=== PATIENT | female | born 1940 | race Caucasian/White ===

== ENCOUNTER 2025-02-15 08:59 | Inpatient (IN) | payer MEDICARE, OTHER ==
[~2025-02-15] VITALS: Ht 157.5 cm; Wt 56.6 kg
--- NOTE | 2025-02-15 09:26 | Physician Documentation ---
History of Present Illness Chief Complaint: Abdominal Pain Stated Complaint: ABD PAIN Time Seen by MD: 09:16 HPI 5-year-old female presents to the ED with a complaint of right lower quadrant abdominal pain that goes to her right flank. Denies any history of kidney stones but reports that she has had diarrhea for approximately a month and over the last day she has had increased pain in nausea. Denies any fevers and reports being generally healthy Day of Onset: Feb 15, 2025 Medication Reconciliation Allergies: Coded Allergies: No Known Allergies (Unverified , 02/15/25) Physical Exam Vital Signs: Temperature: 97.0, Source: Temporal, Heart Rate: 83, Respiratory Rate: 18, BP: 191/87, Pulse Oximetry: 97, Weight: 50.910 Physical Exam General: Alert, no apparent distress. Respiratory: Lungs clear, no respiratory distress. Cardiovascular: Regular rate and rhythm, no murmurs. Gastrointestinal: Soft, tender LLQ Extremities: Normal range of motion, no deformity. Neurologic: Oriented x4. Psychiatric: Normal mood and affect. Skin: Normal color, warm and dry. No edema, no ecchymosis. Progress Results/Orders Results/Orders Orders - GOPAL PACKER OBSTETRICS SPECIALIST Pantoprazole 40mg Iv (Protonix 40mg Iv) (02/15/25 09:20) Ct Abdomen Pelvis (02/15/25 09:20) Completed Orders - GOPAL PAKCER OBSTETRICS SPECIALIST Normal Saline 1000ml (0.9% Sodium Chlori (02/15/25 09:20) Ondansetron Inj. (Zofran 4mg/2ml Vial) (02/15/25 09:20) Vital Signs 02/15/25 09:04 Temp 97.0 Pulse 83 Resp 18 B/P (MAP) 191/87 Pulse Ox 97 Laboratory Tests Test 02/15/25 09:19 Medical Decision Making Additional info obtained from: other Findings Spoke to Dr. Munoz regarding this patient. Has him of evidence of a small- bowel obstruction and trace free fluid. She is currently hemodynamically stable we and has a white count of 12.9. I am awaiting lactic. We will maintain her comfort and admitted to the hospital Differential Dx:Considerations: Include: AAA, -Complete, - Incomplete, -Inevitable, -Missed, -Threatened, Abruptio placentae, Angina/DC, Aortic dissection, Appendicitis, Bowel obstruction, Cholangitis, Cholelithasis, Constipation, Diverticular disease, Esophageal rupture, Esophagitis, Gastritis/PUD, Gastroenteritis, GI hemorrhage, Hernia, Hepatitis, Inflammatory BD, Ischemic bowel, Ovarian cyst/torsion, Pancreatitis, PID, Porphyria, Trauma, intraabdominal, Urinary obstruction, Urinary tract infection, Urolithiasis, Other Departure Disposition: 09 ADMITTED INPATIENT Impression: Primary Impression: Abdominal pain Condition: Stable Referrals: NO PRIMARY CARE PROVIDER (PCP) Signature Scribe Signature: c Attestation: Scribed for Gopal Packer Np by Gopal Rivas NP . 02/15/25 16:06 GOPAL PACKER NP Feb 15, 2025 09:26
[2025-02-15 09:38] LABS: MEAN PLATELET VOLUME 9.8 FL (7.4-10.4); RED CELL DISTRIBUTION WIDTH 13.3 % (11.5-14.5)
[2025-02-15] MEDS: ondansetron/PF 4mg/2ml inj IV ONE (09:40)
[2025-02-15] MEDS: normal saline 1000ML IV soln IVB ONE (09:49)
[2025-02-15 09:58] LABS: CREATININE 0.82 MG/DL (0.40-0.90); TOTAL CARBON DIOXIDE 29.3 MMOL/L (24-32); eCRCL 41 ML/MIN; eGFR 67 ML/MIN
--- NOTE | 2025-02-15 10:57 | RADIOLOGY REPORT ---
CLINICAL HISTORY: RLQ abd pain TECHNIQUE: CT of the abdomen and pelvis was performed without IV contrast. This exam was performed according to our departmental dose optimization program. Up-to-date CT equipment and radiation dose reduction techniques are utilized as appropriate. CTDI 8.9 DLP 398 COMPARISON: None FINDINGS: Abdomen/Pelvis: The spleen, pancreas, adrenal glands, kidneys, gallbladder, and bladder are grossly unremarkable. The uterus is absent. A hypodense lesion within the liver is incompletely characterized due to small size and lack of IV contrast. The abdominal aorta is normal in course and caliber. There are moderate atherosclerotic changes. There is no free intraperitoneal air. There is no enlarged abdominal pelvic lymph node. There is diffuse proximal primarily fluid-filled small-bowel dilatation with luminal caliber approaching 3.2 cm. There is a transition point at the right lower quadrant, best seen on images 79 through 62 series 2 and images 23 through 35 series 601. Is a small amount of free fluid. Other: The imaged lower thorax is unremarkable. No acute osseous abnormality is evident. There is grade 1 L4-L5 and L5-S1 anterolisthesis. Impression: Small-bowel obstruction as above. Small amount of free fluid. Hysterectomy.
[2025-02-15 11:28] LABS: LEUKOCYTE ESTERASE ,URINE NEGATIVE (Neg); NITRITES, URINE NEGATIVE (Neg); OCCULT BLOOD,URINE TRACE-INTACT (Neg)
[2025-02-15 11:30] LABS: UA COLLECTION TYPE CLN CATCH MIDSTREAM
[2025-02-15 11:38] LABS: AMORPHOUS PHOSPHATES 3+; SQUAMOUS EPITHELIAL CELL,UR FEW /LPF (FEW)
[2025-02-15 11:39] LABS: COARSE GRANULAR CAST 0-3 /LPF (NEGATIVE)
[2025-02-15] MEDS: morphine 4 MG/ML inj SYRINge IV ONE (11:47)
[2025-02-15] MEDS: normal saline 1000ml 1,000 ML IV SCH (12:05)
[2025-02-15] MEDS ORDERED: magnesium sulf-water 4G/100mL 100 ML IV PRN (12:05)
[2025-02-15] MEDS ORDERED: magnesium sulf-water 2g/50mL 50 ML IV PRN (12:05)
[2025-02-15] MEDS ORDERED: potassium Cl 20 mEq SR tablet PO PRN ×2 (12:05)
[2025-02-15] MEDS ORDERED: magnesium Cl slow-release 64mg tablet PO PRN (12:05)
[2025-02-15] MEDS ORDERED: HYDROcodone/acetaminophen 10/325mg tab PO PRN (12:05)
[2025-02-15] MEDS ORDERED: HYDROcodone/acetaminophen 5mg/325mg tablet PO PRN (12:05)
[2025-02-15] MEDS: normal saline 1000ml 1,000 ML IV ONE (12:08)
[2025-02-15] MEDS: fentaNYL/PF 50MCG/1 ML 2ML syringe IV ONE (12:15)
--- NOTE | 2025-02-15 13:19 | VASCULAR REPORT ---
[facility] Vascular Department [facility] [address] [place] [address] [email or web address] Name : GALA BRAR Date : 02/15/2025 [facility] Birthdate : 1940 Sex : F Astronomy Teacher : Lalo Foss RVT Age : [address]Y [address] : JADE Preliminary Report The above named patient was referred for a NON-INVASIVE MESENTERIC ARTERY EVALUATION. The evaluation includes grayscale imaging, color flow Doppler and spectral analysis of the mesenteric and other associated abdominal arteries. Patient ER InaRcations Abdominal pain/postprandial nausea Assessment Origin Proximal Mid Distal Superior Mesenteric A. PSV 234.0cm/s PSV 237.1cm/s PSV 129.7cm/s EDV 26.2cm/s EDV 43.0cm/s EDV 16.4cm/s High Resistance High Resistance High Resistance Celiac [place] PSV 223.8cm/s EDV 36.5cm/s Low Resistance Hepatic Artery PSV 108.6cm/s EDV 26.2cm/s Low Resistance Splenic Artery PSV 206.4cm/s EDV 28.6cm/s Low Resistance Aortic Doppler Velocity Waveform Proximal Aorta 119.9 cm/sec Multiphasic Impression: Technically difficult exam due to patient's heavy labored breathing as a result of patient's pain. Possible greater than 70% stenosis detected by image in the celiac axis. The splenic artery also displays elevated velocities with turbulence, indicating a possible stenosis. Less than 70% stenosis visualized in the superior mesenteric artery, unable to visualize the inferior mesenteric artery due to bowel gas.
--- NOTE | 2025-02-15 18:54 | PROGRESS NOTE ---
Progress Note ID Providers to CC ~ Progress Note Progress Note: pt seen and examined-needs ct with oral contrast LAINE VARGHESE MD Feb 15, 2025 18:54
--- NOTE | 2025-02-15 19:13 | CARDIOLOGY REPORT ---
APPROVED REPORT EXAM: Comprehensive 2D, Doppler, and color-flow Echocardiogram. Patient Location: 346 A Heart Rate: 60's bpm Rhythm: SINUS Indications PRE OP Escrow Clerk: NONE Previous echo: NONE 2D Dimensions RVDd 3.0 cm IVSd 0.8 (0.7-1.1cm) LVDd 4.0 cm PWd 0.8 (0.7-1.1cm) IVSs 1.0 (0.8-1.2cm) LVDs 2.6 (2.5-4.0cm) PWs 1.0 (0.8-1.2cm) LVOT Diameter 1.96 (1.8-2.4cm) LVEF(%) 64.6 (>50%) FS (%) 34.8 % SV 44.3 ml CO 2.7 L/min M-Mode Dimensions Left Atrium(MM) 3.36 (2.5-4.0cm) Aortic Root 2.89 (2.2-3.7cm) Aortic Cusp Exc 1.99 (1.5-2.0cm) Aortic Valve AoV Peak Javier. 128.8 cm/s AoV VTI 26.2 cm AO Peak GR. 6.6 mmHg AO Mean GR. 3 mmHg LVOT VTI 22.15 cm LVOT Peak Javier. 102.7 cm/s TRIPP(VTI)/BSA 2.56 cm2/m2 TRIPP (VTI) 2.56 cm2 AV DI 0.85 % Mitral Valve MV E Velocity 65.7 cm/s MV Peak Gr. 3 mmHg MV DECEL TIME 244 ms MV A Velocity 79.1 cm/s MV PHT 64 ms E/A Ratio 0.8 MVA (PHT) 3.44 cm2 MV VMax 93.0 cm/s Tricuspid Valve TR P. Velocity 197 cm/s RAP ESTIMATE 10 mmHg TR Peak Gr. 16 mmHg RVSP 26 mmHg LEFT VENTRICLE Normal LV size and wall thickness. Overall systolic function is normal. LVEF is 65-70%. RIGHT VENTRICLE RV is normal size and function. ATRIA The left atrium size is normal. AORTIC VALVE Trileaflet AV appears mildly sclerotic without stenosis. Mild insufficiency. MITRAL VALVE Mild MV annular calcification without stenosis. Trace regurgitation. TRICUSPID VALVE TV appears structurally normal with trace regurgitation. PULMONIC VALVE Normal PV without stenosis, physiologic insufficiency. GREAT VESSELS The aortic root is normal in size. PERICARDIUM Normal pericardium. No effusion. Other Information Study Quality: Adequate Conclusion Normal LV size and wall thickness. Overall systolic function is normal. LVEF is 65-70%. RV is normal size and function. The left atrium size is normal. Trileaflet AV appears mildly sclerotic without stenosis. Mild insufficiency. Mild MV annular calcification without stenosis. Trace regurgitation. TV appears structurally normal with trace regurgitation. Normal pericardium. No effusion.
[2025-02-15] MEDS: K and/or MAG REPLACEMENT MC SCH (20:00)
--- NOTE | 2025-02-15 20:11 | HISTORY AND PHYSICAL ---
History & Physical Providers to ~ History of Present Illness Reason for Admit\Complaint: Abdominal pain which started last night History of Present Illness Patient is 85-year-old female with history of hypothyroidism does not take any other medication besides levothyroxine and vitamin-C. She came to ER with her concern regarding abdominal pain mainly lower abdominal pain which she noticed last night . as per it started around 11:00 a.m. and got more worse around 1-2 p.m.. Patient mentioned that it feels like that somebody pinched or twisted her intestines it woke her from her sleep. she [place] as if gas is building up in her stomach so she forced herself to threw up . Patient also mentioned that she is having watery diarrhea since last one month in last bowel movement was this a.m. today was also watery. She denied any blood in her stools , denied any fever . As per patient pain is started suddenly and it was not there since last month with diarrhea. She had colonoscopy done around 77 years of age which was unremarkable. She never had similar symptoms in past and this is the 1st episode of severe abdominal pain for her. Patient does not smoke drink or use any recreational drugs. 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 The splenic artery also displays elevated velocities with turbulence, indicating a possible stenosis. Less than 70% stenosis visualized in the superior mesenteric artery, unable to visualize the inferior mesenteric artery due to bowel gas. CT ABDOMEN PELVISSmall-bowel obstruction as above.Small amount of free fluid. s/p Hysterectomy. Allergies: Coded Allergies: No Known Allergies (Unverified , 02/15/25) Past Medical History Past Medical History Hypothyroidism Past Surgical History Surgical History Comment s/p Hysterectomy. Past Social History Social History Comment Patient lives with her , denies any use of any tobacco alcohol or any recreational drugs. Able to ambulate well ROS ROS Review of system as mentioned above in HPI rest of the review of system unremarkable Exam Vitals: Vital Signs Date Time Temp Pulse Resp B/P (MAP) Pulse Ox O2 Delivery O2 Flow Rate FiO2 02/15/25 14:52 98.3 69 16 132/60 (84) 95 0 General: General-patient not in any acute distress, alert awake oriented, age- appropriate, HEENT-atraumatic normocephalic, neck supple without elevated JVD, no thyromegaly or carotid bruit. No lymphadenopathy bilaterally. Eyes-no icterus or pallor seen in eyes Chest-clear to auscultation bilaterally, breathing nonlabored no tachypnea, no wheezing, no crepitation, no crackles. Heart-S1-S2 normal, regular heart rate no murmur Abdomen bowel sounds positive on auscultation, soft nondistended , no signs of tenderness when I evaluated her, no guarding, no rigidity. No abdominal bruit Skin no active skin rash Neurology-grossly intact, nonfocal alert awake oriented Extremity- no pedal edema able to move all 4 extremities Psychiatry - patient is not confused or agitated cooperated during physical examination Diagnostic Data Last Recorded Lab Results: 02/15/2591802/15/25918 Additional Plan Patient is 85-year-old female with history of hypothyroidism does not take any other medication besides levothyroxine and vitamin-C. She came to ER with her concern regarding abdominal pain mainly lower abdominal pain which she noticed last night . Hospitalist services contacted for admission for small-bowel obstruction. # small-bowel obstruction. ER provider spoke with Dr. Antoine who is willing to evaluate the case. Ordered CT with oral contrast today. Patient is started on IV fluids IV antibiotics and pain medication for pain control. 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 The splenic artery also displays elevated velocities with turbulence, indicating a possible stenosis. Less than 70% stenosis visualized in the superior mesenteric artery, unable to visualize the inferior mesenteric artery due to bowel gas. CT ABDOMEN PELVISSmall-bowel obstruction as above.Small amount of free fluid. s/p Hysterectomy. # hypothyroidism we will restart levothyroxine in a.m. We will continue to monitor patient's labs and vitals closely . Code status discussed with the patient patient wishes full code Time spent in discussing code status 16 minutes. We will do home medication reconciliation once updated in electronic by nursing staff or pharmacist. Further management depending on response to treatment and as per recommendation by Dr Munoz . I will continue to follow patient in a.m. Date of Service: Feb 15, 2025 Billing Provider: LINNEA CASILLAS MD Common Visit Codes: [id number] INP/OBS CARE (HIGH) Secondary Visit Codes: 37218-[id number] CARE PLAN 30 MINUTES LINNEA CASILLAS MD Feb 15, 2025 20:11
[2025-02-15] MEDS: diatr meglu/diatrizoate 30ml oral sol.-(3 dose) bottle PO SCH (21:10)
[2025-02-15] MEDS: heparin, porcine 5000 units/ml vial SQ SCH (21:11)
[2025-02-15 22:00] VITALS: BP 154/55; PULSE 61; RESP 16; TEMP 98; O2SAT 96
[2025-02-15] MEDS: CefTRIAXone 2gm/D5W 50ml BAG 50 ML IV SCH (22:11)
[2025-02-15] MEDS: ondansetron/PF 4mg/2ml inj IV PRN (22:18)
[2025-02-15] MEDS ORDERED: morphine 4 MG/ML inj SYRINge IV PRN (22:40)
[2025-02-15] MEDS ORDERED: LEVO75TA7 PO (22:55)
[2025-02-15] MEDS: morphine 4 MG/ML inj SYRINge IV PRN (23:17)
[2025-02-16] VITALS (30 sets, daily range): BP systolic 111–215; BP diastolic 47–99; PULSE 61–85; RESP 10–28; TEMP 97.5–98.3; O2SAT 93–100
[2025-02-16 04:43] LABS: MEAN PLATELET VOLUME 9.4 FL (7.4-10.4); RED CELL DISTRIBUTION WIDTH 13.7 % (11.5-14.5)
[2025-02-16 04:59] LABS: CREATININE 0.76 MG/DL (0.40-0.90); TOTAL CARBON DIOXIDE 28.7 MMOL/L (24-32); eCRCL 44 ML/MIN; eGFR 73 ML/MIN
[2025-02-16] MEDS ORDERED: metoclopramide 5 mg/ml inj IV PRN (10:15)
--- NOTE | 2025-02-16 11:33 | CONSULTATION ---
DATE OF CONSULTATION: 02/15/2025 DICTATING PHYSICIAN: Rupert Munoz MD REASON FOR CONSULTATION: Abdominal pain. HISTORY OF PRESENT ILLNESS: The patient is an 85-year-old female without the past medical history who developed right-sided abdominal discomfort. The patient presented for evaluation. CAT scan revealed evidence of a small bowel obstruction. Surgical evaluation is now requested. On further questioning, the patient complains of right-sided abdominal discomfort. She has had some vomiting. She has had a change in bowel movements in the last month. Now she is having watery stool on a daily basis. No blood per rectum per her report. No history of inflammatory bowel disease. PAST MEDICAL HISTORY: Hypothyroidism. PAST SURGICAL HISTORY: Previous hysterectomy. HOME MEDICATIONS: See chart. ALLERGIES: None. SOCIAL HISTORY: Unremarkable. REVIEW OF SYSTEMS: Please see H and P. PHYSICAL EXAMINATION: GENERAL: Well-nourished, elderly female. VITAL SIGNS: Unremarkable. HEART: Regular rate and rhythm. LUNGS: Clear to auscultation. ABDOMEN: Abdomen is distended with some mild tenderness. No ana maria peritonitis. No masses appreciated. No hernias appreciated. EXTREMITIES: Unremarkable. NEUROLOGIC EXAM: Nonfocal. LABORATORY DATA: Labs include WBC of 12, hematocrit 48, platelet count 301. Chemistries include a bicarb of 29, BUN and creatinine of 3 and 0.8. LFTs are unremarkable. Lactic acid level was 1.5. IMAGING STUDIES: CT of the abdomen and pelvis reveals dilated loops of small bowel, decompressed loops distally. No obvious calcification in the mesenteric vessels. IMPRESSION: * Partial bowel obstruction, no signs of peritonitis. * History of hypothyroidism. PLAN: * Check Doppler. * Repeat CT with oral contrast. * Serial exam. Rupert Munoz MD TID: [id number] RECEIPT: [id number] KB/PRG cc: Rupert Munoz MD(User)
--- NOTE | 2025-02-16 13:15 | RADIOLOGY REPORT ---
Indication: pain Comparison: CT CT ABDOMEN PELVIS on DOS: 02/15/25 Technique: Helical axial scans were performed through the abdomen and pelvis without intravenous contrast. Oral contrast was administered. Subsequently, coronal and sagittal reformations were obtained. Dose lowering techniques have been used including automated exposure control and adjustment of mA and/or kv according to patient size. FINDINGS: Limited evaluation of the vasculature and solid organs due to lack of intravenous contrast. LUNGS BASES: Clear LIVER: Too small to characterize hypoattenuating foci. SPLEEN: Normal GALLBLADDER: Normal PANCREAS: Normal ADRENAL GLANDS: Normal KIDNEYS: No hydronephrosis or obstructing renal stone. GI: Oral contrast predominantly opacify in the small bowel, with very little amount progressing into the colon. Small-bowel dilation measuring up to 3.3 cm. 2 distinct transition points adjacent to each other in the right lower quadrant, raising suspicion for developing closed loop obstruction Appendix not discretely identified. LYMPH NODES: Normal VASCULAR STRUCTURES: Atherosclerotic calcification of the abdominal aorta and its major branches. BLADDER: Normal PELVIC ORGAN: Status post hysterectomy. FREE AIR OR FREE FLUID: Small volume free fluid. OSSEOUS STRUCTURES: Multilevel degenerative changes of the spine. Grade 1 anterolisthesis of L4-L5. SOFT TISSUES: Normal DLP is 457.1 mGy-cm. CTDI vol is 9.9 mGy. IMPRESSION: 1. Small-bowel dilation with 2 distinct transition points in the right lower quadrant, concerning for developing/early closed loop obstruction. Surgical consultation suggested. 2. Oral contrast predominantly opacify the small bowel, although very little amount passes through and reaching the colon, suggesting partial obstruction. 3. Small volume free fluid. *Findings communicated to Dr. Yuan by Dr. Lagos of Radiology at 02/16/2025 04:12 PM
--- NOTE | 2025-02-16 15:11 | PROGRESS NOTE ---
Progress Note ID Providers to CC ~ Progress Note Progress Note: ct noted-persistent tenderness-pt needs ex lap-discussed procedure including risks/benefits/alternatives LAINE VARGHESE MD Feb 16, 2025 15:11
--- NOTE | 2025-02-16 15:14 | ELECTROCARDIOGRAPH REPORT ---
[facility] Test Date: 2025-02-16 Test Time: 15:12:28 Pat Name: GALA BRAR Department: [facility] 3 Patient ID: [facility]-[id number] Room: [place] [address] A Gender: F Physiology Teacher: : 1940 Requested By: LAINE VARGHESE Order Number: [id number] Reading MD: Dr. VIDHI Hoyt Measurements Intervals Nelson Rate: 75 P: 79 OR: 173 QRS: -81 QRSD: 116 T: 51 QT: 404 QTc: 452 Interpretive Statements Sinus rhythm Incomplete RBBB and LAFB Electronically Signed On 02-16-2025 17:35:[address] VIDHI Hoyt Please click the below link to view image of tracing.
[2025-02-16 15:47] LABS: INR 1.0 INR
[2025-02-16] MEDS ORDERED: midazolam 1 mg/ML 2ml injection ONE (16:30)
[2025-02-16] MEDS ORDERED: fentaNYL /PF 50mcg/ml 5ml ampule ONE (16:31)
[2025-02-16] MEDS ORDERED: ceFOXitin 1000 MG inj ONE (16:54)
[2025-02-16] MEDS ORDERED: propofol inj 20 ML IV ONE (17:05)
[2025-02-16] MEDS ORDERED: albumin (Human) 5% 250ml 250 ML IV ONE (17:05)
[2025-02-16] MEDS ORDERED: rocuronium 10mg/ml inj IV ONE (17:05)
[2025-02-16] MEDS ORDERED: ondansetron/PF 4mg/2ml inj ONE (17:09)
[2025-02-16] MEDS ORDERED: acetaminophen 1,000mg/100ml IV 100 ML IV ONE (17:22)
--- NOTE | 2025-02-16 17:22 | OPERATIVE REPORT ---
Operative Report Providers to CC ~ Date of Procedure: Feb 16, 2025 Pre-Operative Diagnosis: small bowel obstruction Post-Operative Diagnosis SAME as PRE-Op Procedure Performed ex lap/carmela Surgeon: liz cueto Anesthesiologist: Too Powell Type of Anesthesia: General Findings: adhesions Estimated Blood Loss: min Specimen Removed: none LAINE VARGHESE MD Feb 16, 2025 17:22
[2025-02-16] MEDS ORDERED: fentaNYL/PF 50MCG/1 ML 2ML syringe IV PRN (17:35)
[2025-02-16] MEDS ORDERED: ondansetron/PF 4mg/2ml inj IV PRN (17:35)
[2025-02-16] MEDS: HYDROmorphone/PF 0.2 MG/ML SYRINGE IV PRN ×2 (17:43→18:31)
[2025-02-16] MEDS: fentaNYL/PF 50MCG/1 ML 2ML syringe IV PRN (17:48)
[2025-02-16] MEDS: ketorolac trometh 30MG/ML vial 30 MG/ML VIAL IV ONE (17:53)
[2025-02-16] MEDS: labetalol 20mg/4ml (5mg/ml) syringe IV PRN (17:56)
[2025-02-16] MEDS: hydrALAZINE 20mg/ml inj. IV PRN (18:03)
[2025-02-16] MEDS: HYDROmorphone inj. 0.5 MG/0.5 ML DISP.SYRIN IV PRN ×2 (19:20→20:29)
[2025-02-16] MEDS: ringers solution, lacted 1,000 ML IV SCH (20:11)
[2025-02-16] MEDS: ketorolac trometh 15mg/ml vial 15 MG/ML ML IV SCH (20:18)
--- NOTE | 2025-02-16 20:56 | PROGRESS NOTE ---
Daily Progress Note Providers to CC ~ Antibiotic Timeout Antibiotic Ordered?: Yes Subjective Patient was seen in presence of her today she had CT abdomen and pelvis scan done with oral contrast. student finance specialist Dr. Lagos contacted me and discuss the results of the CT abdomen and pelvis with oral contrast. Dr. Antoine following the patient and contacted by nursing staff. Patient had exploratory laparotomy done for small-bowel obstruction today Objective Vital Signs Date Time Temp Pulse Resp B/P (MAP) Pulse Ox O2 Delivery O2 Flow Rate FiO2 02/16/25 20:29 20 02/16/25 19:30 75 129/61 (83) 97 Nasal Cannula 1.0 02/16/25 17:[address] ABDOMEN PELVIS IMPRESSION: 1. Small-bowel dilation with 2 distinct transition points in the right lower quadrant, concerning for developing/early closed loop obstruction. Surgical consultation suggested. 2. Oral contrast predominantly opacify the small bowel, although very little amount passes through and reaching the colon, suggesting partial obstruction. 3. Small volume free fluid. Result Diagram: 02/16/25 0427 02/16/25 0427 General-patient not in any acute distress, alert awake oriented, age- appropriate, HEENT-atraumatic normocephalic, neck supple without elevated JVD, no thyromegaly or carotid bruit. No lymphadenopathy bilaterally. Eyes-no icterus or pallor seen in eyes Chest-clear to auscultation bilaterally, breathing nonlabored no tachypnea, no wheezing, no crepitation, no crackles. Heart-S1-S2 normal, regular heart rate no murmur Abdomen bowel sounds positive on auscultation, soft nondistended , signs of tenderness on palpation over right lower quardrant , no guarding, no rigidity. No abdominal bruit Skin no active skin rash Neurology-grossly intact, nonfocal alert awake oriented Extremity- no pedal edema able to move all 4 extremities Psychiatry - patient is not confused or agitated cooperated during physical examination Coagulation Studies Laboratory Tests Test 02/16/25 15:17 Prothrombin Time 10.6 SECONDS (9.0-12.0) INR International Normalized Ratio 1.0 INR Coagulation Comments Problem\Assessment\Plan Patient is 85-year-old female with history of hypothyroidism does not take any other medication besides levothyroxine and vitamin-C. She came to ER with her concern regarding abdominal pain mainly lower abdominal pain which she noticed last night . Hospitalist services contacted for admission for small-bowel obstruction. # small-bowel obstruction. ER provider spoke with Dr. Antoine who is willing to evaluate the case. Ordered CT with oral contrast today. Patient is started on IV fluids IV antibiotics and pain medication for pain control. 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 The splenic artery also displays elevated velocities with turbulence, indicating a possible stenosis. Less than 70% stenosis visualized in the superior mesenteric artery, unable to visualize the inferior mesenteric artery due to bowel gas. CT ABDOMEN PELVISSmall-bowel obstruction as above.Small amount of free fluid. s/p Hysterectomy. she had CT abdomen and pelvis scan done with oral contrast. student finance specialist Dr. Lagos contacted me and discuss the results of the CT abdomen and pelvis with oral contrast. Dr. Antoine following the patient and contacted by nursing staff. Patient had exploratory laparotomy done for small-bowel obstruction today # hypothyroidism we will restart levothyroxine in a.m. # Code status discussed with the patient patient wishes full code We will continue to monitor patient's labs and vitals closely . home medication reconciliation updated in electronic records. Further management depending on response to treatment and as per recommendation by Dr Munoz . I will continue to follow patient in a.m. Date of Service: Feb 16, 2025 Billing Provider: LINNEA CASILLAS MD Common Visit Codes: [id number] INP/OBS CARE(HIGH) LINNEA CASILLAS MD Feb 16, 2025 20:56
[2025-02-17 05:02] LABS: CREATININE 0.90 MG/DL (0.40-0.90); TOTAL CARBON DIOXIDE 28.2 MMOL/L (24-32); eCRCL 37 ML/MIN; eGFR 60 ML/MIN
[2025-02-17 05:04] LABS: MEAN PLATELET VOLUME 9.6 FL (7.4-10.4); RED CELL DISTRIBUTION WIDTH 13.5 % (11.5-14.5)
[2025-02-17 08:00] VITALS: RESP 18
[2025-02-17] MEDS: potassium Cl 40MEQ/1/2NS 520ml 520 ML IV PRN (08:31)
[2025-02-17 10:38] VITALS: BP 131/52; PULSE 68; RESP 16; TEMP 98.5; O2SAT 97
[2025-02-17 10:51] VITALS: BP 122/62; PULSE 77; RESP 21; TEMP 98.8; O2SAT 99
[2025-02-17] MEDS: HYDROmorphone inj. 0.5 MG/0.5 ML DISP.SYRIN IV ONE (11:50)
--- NOTE | 2025-02-17 12:41 | OPERATIVE REPORT ---
DATE OF SURGERY: 02/16/2025 DICTATING PHYSICIAN: Rupert Munoz MD DATE OF OPERATION: 02/16/2025 PREOPERATIVE DIAGNOSIS: Small bowel obstruction. POSTOPERATIVE DIAGNOSIS: Small bowel obstruction. PROCEDURE PERFORMED: lysis of adhesions. SURGEON: Rupert Munoz MD ARMHOLE RAISER LOCKSTITCH: None. ANESTHESIA: General. DRAINS: None. INDICATIONS FOR OPERATION: An 85-year-old female with abdominal pain. CAT scan raised question of small bowel obstruction. Her follow-up CAT scan confirmed the presence of small bowel obstruction. The patient was seen in surgery for laparotomy. INTRAOPERATIVE FINDINGS: The patient had adhesions resulting in small bowel obstruction. DESCRIPTION OF PROCEDURE: The patient was placed supine on the operating table after induction of general anesthesia and placement of endotracheal tube. The abdomen was prepped and draped. After a timeout was performed, the abdomen was midline incision. The abdomen was explored. The patient had adhesions with area of small bowel obstruction in the right lower quadrant. Adhesions were taken down. Small bowel obstruction was released. Small bowel was of the cecal valve found to be unremarkable with some mild ischemia. The abdomen was copiously irrigated with a large amount of antibiotic-containing solution. Rectal fascia was then closed with a running suture of looped PDS with hemostasis found to be adequate. Skin was closed with clips. A dressing was applied and the patient was transferred to recovery in stable condition after anesthesia. Rupert Munoz MD TID: [id number] RECEIPT: [id number] KB/SUL
[2025-02-17] MEDS: HYDROmorph/NS 0.2 mg/ml PCA 100 ML IV SCH (13:00)
[2025-02-17 18:00] VITALS: BP 150/60; PULSE 78; RESP 17; TEMP 99.1; O2SAT 97
--- NOTE | 2025-02-17 19:35 | PROGRESS NOTE ---
Daily Progress Note Providers to CC ~ Antibiotic Timeout Antibiotic Ordered?: Yes Subjective Patient was seen in her room in presence of nursing staff Cecilia patient was in lot of pain . pain medication changed to hydromorphone and Toradol by surgery team. Objective Vital Signs Date Time Temp Pulse Resp B/P (MAP) Pulse Ox O2 Delivery O2 Flow Rate FiO2 02/17/25 19:00 16 02/17/25 10:51 98.8 77 122/62 (82) 99 02/17/25 10:38 Room Air 02/17/25 08:00 2.0 Result Diagram: 02/17/2543902/17/250 General-patient not in any acute distress, alert awake oriented, age- appropriate, HEENT-atraumatic normocephalic, neck supple without elevated JVD, no thyromegaly or carotid bruit. No lymphadenopathy bilaterally. Eyes-no icterus or pallor seen in eyes Chest-clear to auscultation bilaterally, breathing nonlabored no tachypnea, no wheezing, no crepitation, no crackles. Heart-S1-S2 normal, regular heart rate no murmur Abdomen no bowel sounds on auscultation, soft nondistended , signs of tenderness on palpation over surgical dressing site no guarding, no rigidity. No abdominal bruit Skin no active skin rash Neurology-grossly intact, nonfocal alert awake oriented Extremity- no pedal edema able to move all 4 extremities Psychiatry - patient is not confused or agitated cooperated during physical examination Coagulation Studies Laboratory Tests Test 02/16/25 15:17 Prothrombin Time 10.6 SECONDS (9.0-12.0) INR International Normalized Ratio 1.0 INR Coagulation Comments Problem\Assessment\Plan Patient is 85-year-old female with history of hypothyroidism does not take any other medication besides levothyroxine and vitamin-C. She came to ER with her concern regarding abdominal pain mainly lower abdominal pain which she noticed last night . Hospitalist services contacted for admission for small-bowel obstruction. # small-bowel obstruction. ER provider spoke with Dr. Antoine who is willing to evaluate the case. Ordered CT with oral contrast today. Patient is started on IV fluids IV antibiotics and pain medication for pain control. 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 The splenic artery also displays elevated velocities with turbulence, indicating a possible stenosis. Less than 70% stenosis visualized in the superior mesenteric artery, unable to visualize the inferior mesenteric artery due to bowel gas. CT ABDOMEN PELVISSmall-bowel obstruction as above.Small amount of free fluid. s/p Hysterectomy. she had CT abdomen and pelvis scan done with oral contrast. clinical appeals specialist Dr. Lagos contacted me and discuss the results of the CT abdomen and pelvis with oral contrast. Dr. Antoine following the patient and contacted by nursing staff. Patient had exploratory laparotomy done for small-bowel obstruction . # hypothyroidism we will restart levothyroxine in a.m. # hypokalemia we will do the replacement of potassium as per protocol # Code status discussed with the patient at the time of admission, patient wishes full code We will continue to monitor patient's labs and vitals closely . home medication reconciliation updated in electronic records. Further management depending on response to treatment and as per recommendation by Dr Munoz . I will continue to follow patient in a.m. Date of Service: Feb 17, 2025 Billing Provider: LINNEA CASILLAS MD Common Visit Codes: [id number] INP/OBS CARE(HIGH) LINNEA CASILLAS MD Feb 17, 2025 19:34
[2025-02-17 20:00] VITALS: RESP 17; O2SAT 97
--- NOTE | 2025-02-17 20:54 | PROGRESS NOTE ---
Progress Note ID Providers to CC ~ Progress Note Progress Note: pain improving/vss/abd-min distention/labs noted a/p 1. s/p carmela-slow progress/cont supportive care LAINE VARGHESE MD Feb 17, 2025 20:54
[2025-02-17 22:00] VITALS: BP 125/50; PULSE 78; RESP 15; TEMP 98.2; O2SAT 96
[2025-02-18 05:53] LABS: MEAN PLATELET VOLUME 10.5 FL (7.4-10.4); RED CELL DISTRIBUTION WIDTH 13.8 % (11.5-14.5)
[2025-02-18 06:18] LABS: CREATININE 0.66 MG/DL (0.40-0.90); TOTAL CARBON DIOXIDE 29.1 MMOL/L (24-32); eCRCL 51 ML/MIN; eGFR 86 ML/MIN
[2025-02-18 07:17] VITALS: BP 123/51; PULSE 72; RESP 16; TEMP 98.2; O2SAT 96
[2025-02-18 10:00] VITALS: BP 145/55; PULSE 76; RESP 15; TEMP 98.3; O2SAT 96
[2025-02-18] MEDS ORDERED: magnesium sulf-water 4G/100mL 100 ML IV PRN (13:25)
[2025-02-18] MEDS ORDERED: magnesium sulf-water 2g/50mL 50 ML IV PRN (13:25)
[2025-02-18] MEDS ORDERED: potassium Cl 20 mEq SR tablet PO PRN (13:25)
[2025-02-18] MEDS ORDERED: magnesium Cl slow-release 64mg tablet PO PRN (13:25)
[2025-02-18] MEDS: potassium Cl 40MEQ/1/2NS 520ml 520 ML IV PRN (13:31)
[2025-02-18 18:00] VITALS: BP 162/74; PULSE 78; RESP 18; TEMP 98; O2SAT 96
[2025-02-18] MEDS: PCA WASTE DOCUMENTATION 1 MG ML MC SCH (18:38)
--- NOTE | 2025-02-18 19:56 | PROGRESS NOTE ---
Daily Progress Note Providers to CC ~ Antibiotic Timeout Antibiotic Ordered?: Yes Subjective Was seen in presence of nursing staff patient is using DERRICK HAND pump for pain control currently. Further management as per Dr. Munoz Objective Vital Signs Date Time Temp Pulse Resp B/P (MAP) Pulse Ox O2 Delivery O2 Flow Rate FiO2 02/18/25 18:34 16 02/18/25 10:00 98.3 76 145/55 (85) 96 Room Air 02/18/25 08:30 0.0 02/17/25 23:57 97 Result Diagram: 02/18/25 0445 02/18/25 0445 General-patient not in any acute distress, alert awake oriented, age- appropriate, HEENT-atraumatic normocephalic, neck supple without elevated JVD, no thyromegaly or carotid bruit. No lymphadenopathy bilaterally. Eyes-no icterus or pallor seen in eyes Chest-clear to auscultation bilaterally, breathing nonlabored no tachypnea, no wheezing, no crepitation, no crackles. Heart-S1-S2 normal, regular heart rate no murmur Abdomen -bowel sounds on auscultation, soft nondistended , signs of tenderness on palpation over surgical dressing site no guarding, no rigidity. No abdominal bruit Skin no active skin rash Neurology-grossly intact, nonfocal alert awake oriented Extremity- no pedal edema able to move all 4 extremities Psychiatry - patient is not confused or agitated cooperated during physical examination Coagulation Studies Laboratory Tests Test 02/16/25 15:17 Prothrombin Time 10.6 SECONDS (9.0-12.0) INR International Normalized Ratio 1.0 INR Coagulation Comments Problem\Assessment\Plan Patient is 85-year-old female with history of hypothyroidism does not take any other medication besides levothyroxine and vitamin-C. She came to ER with her concern regarding abdominal pain mainly lower abdominal pain which she noticed last night . Hospitalist services contacted for admission for small-bowel obstruction. # small-bowel obstruction. ER provider spoke with Dr. Antoine who is willing to evaluate the case. Ordered CT with oral contrast today. Patient is started on IV fluids IV antibiotics and pain medication for pain control. 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 The splenic artery also displays elevated velocities with turbulence, indicating a possible stenosis. Less than 70% stenosis visualized in the superior mesenteric artery, unable to visualize the inferior mesenteric artery due to bowel gas. CT ABDOMEN PELVISSmall-bowel obstruction as above.Small amount of free fluid. s/p Hysterectomy. she had CT abdomen and pelvis scan done with oral contrast. rare/endangered species specialist Dr. Lagos contacted me and discuss the results of the CT abdomen and pelvis with oral contrast. Dr. Antoine following the patient and contacted by nursing staff. Patient had exploratory laparotomy done for small-bowel obstruction . # hypothyroidism we will restart levothyroxine in a.m. # hypokalemia we will do the replacement of potassium as per protocol # Code status discussed with the patient at the time of admission, patient wishes full code We will continue to monitor patient's labs and vitals closely . home medication reconciliation updated in electronic records. Further management depending on response to treatment and as per recommendation by Dr Munoz . I will continue to follow patient in a.m. Date of Service: Feb 18, 2025 Billing Provider: LINNEA CASILLAS MD Common Visit Codes: [id number] INP/OBS CARE(HIGH) LINNEA CASILLAS MD Feb 18, 2025 19:56
[2025-02-18 20:00] VITALS: RESP 18; O2SAT 96
[2025-02-18] MEDS: metoclopramide 5 mg/ml inj IV SCH (20:33)
--- NOTE | 2025-02-18 21:51 | PROGRESS NOTE ---
Progress Note ID Providers to CC ~ Progress Note Progress Note: min pain/vss/abd-nondistended/labs noted a/p 1. s/p carmela-slow progress/needs picc and tpn LAINE VARGHESE MD Feb 18, 2025 21:51
[2025-02-18 22:00] VITALS: BP 151/54; PULSE 79; RESP 16; TEMP 98.4; O2SAT 93
[2025-02-19] VITALS (11 sets, daily range): BP systolic 148–197; BP diastolic 56–77; PULSE 73–113; RESP 14–16; TEMP 97.3–97.8; O2SAT 92–96
[2025-02-19 05:01] LABS: MEAN PLATELET VOLUME 9.7 FL (7.4-10.4); RED CELL DISTRIBUTION WIDTH 13.6 % (11.5-14.5)
[2025-02-19 05:07] LABS: CREATININE 0.70 MG/DL (0.40-0.90); TOTAL CARBON DIOXIDE 31.0 MMOL/L (24-32); eCRCL 48 ML/MIN; eGFR 80 ML/MIN
[2025-02-19] MEDS: ALPRAZolam 0.25mg tablet PO PRN (11:47)
[2025-02-19] MEDS: normal saline 1000ml 1,000 ML IV SCH (14:51)
--- NOTE | 2025-02-19 15:47 | PROGRESS NOTE ---
Daily Progress Note Providers to CC ~ Antibiotic Timeout Antibiotic Ordered?: Yes Subjective Was seen in presence of her today feeling little better since yesterday. Dr. Munoz is following and managing the case. He recommended PICC line and TPN for patient Objective Vital Signs Date Time Temp Pulse Resp B/P (MAP) Pulse Ox O2 Delivery O2 Flow Rate FiO2 02/19/25 14:51 16 02/19/25 12:35 74 148/59 (88) 02/19/25 10:05 Room Air 0.0 02/19/25 10:00 97.3 95 02/19/25 05:12 95 Result Diagram: 02/19/25 0443 02/19/253 General-patient not in any acute distress, alert awake oriented, age- appropriate, HEENT-atraumatic normocephalic, neck supple without elevated JVD, no thyromegaly or carotid bruit. No lymphadenopathy bilaterally. Eyes-no icterus or pallor seen in eyes Chest-clear to auscultation bilaterally, breathing nonlabored no tachypnea, no wheezing, no crepitation, no crackles. Heart-S1-S2 normal, regular heart rate no murmur Abdomen -bowel sounds present on auscultation, soft nondistended , signs of tenderness on palpation over surgical dressing site no guarding, no rigidity. No abdominal bruit Skin no active skin rash Neurology-grossly intact, nonfocal alert awake oriented Extremity- no pedal edema able to move all 4 extremities Psychiatry - patient is not confused or agitated cooperated during physical examination Coagulation Studies Laboratory Tests Test 02/16/25 15:17 Prothrombin Time 10.6 SECONDS (9.0-12.0) INR International Normalized Ratio 1.0 INR Coagulation Comments Problem\Assessment\Plan Patient is 85-year-old female with history of hypothyroidism does not take any other medication besides levothyroxine and vitamin-C. She came to ER with her concern regarding abdominal pain mainly lower abdominal pain which she noticed last night . Hospitalist services contacted for admission for small-bowel obstruction. # small-bowel obstruction. ER provider spoke with Dr. Antoine who is willing to evaluate the case. Ordered CT with oral contrast today. Patient is started on IV fluids IV antibiotics and pain medication for pain control. 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 The splenic artery also displays elevated velocities with turbulence, indicating a possible stenosis. Less than 70% stenosis visualized in the superior mesenteric artery, unable to visualize the inferior mesenteric artery due to bowel gas. CT ABDOMEN PELVISSmall-bowel obstruction as above.Small amount of free fluid. s/p Hysterectomy. she had CT abdomen and pelvis scan done with oral contrast. art therapy specialist Dr. Lagos contacted me and discuss the results of the CT abdomen and pelvis with oral contrast. Dr. Antoine following the patient and contacted by nursing staff. Patient had exploratory laparotomy done for small-bowel obstruction . on GENERAL [employer]ACTICE pump for pain control currently. # hypothyroidism we will restart levothyroxine in a.m. # hypokalemia we will do the replacement of potassium as per protocol # Code status discussed with the patient at the time of admission, patient wishes full code We will continue to monitor patient's labs and vitals closely . home medication reconciliation updated in electronic records. Further management depending on response to treatment and as per recommendation by Dr Munoz . I will continue to follow patient in a.m. Date of Service: Feb 19, 2025 Billing Provider: LINNEA CASILLAS MD Common Visit Codes: [id number] INP/OBS CARE(HIGH) LINNEA CASILLAS MD Feb 19, 2025 15:47
[2025-02-19] MEDS ORDERED: SODIUM PHOSPHATE IN D5W 260 ML IV PRN (16:00)
[2025-02-19] MEDS ORDERED: sodium phos 15mmol/D5 255mL 255 ML IV PRN (16:00)
[2025-02-19 17:56] LABS: CREATININE 0.58 MG/DL (0.40-0.90); PHOSPHORUS 2.5 MG/DL (2.3-4.5); TOTAL CARBON DIOXIDE 30.7 MMOL/L (24-32); eCRCL 58 ML/MIN; eGFR > 90 ML/MIN
[2025-02-19] MEDS: ZINC/COPPER/MANGANESE/SELENIUM 1 ML, chromic chloride inj. 10 MCG, MVI, adult No.4 with... IV SCH (19:27)
[2025-02-19] MEDS: FAT EMUL/SOY/MCT/OLIV/FISH OIL (SMOF) 100 ML IV SCH (19:27)
[2025-02-19] MEDS: diatr meglu/diatrizoate 30ml oral sol.-(3 dose) bottle PO SCH (21:46)
[2025-02-20 06:00] VITALS: BP 146/65; PULSE 76; RESP 16; TEMP 98; O2SAT 94
[2025-02-20 06:34] LABS: CREATININE 0.55 MG/DL (0.40-0.90); PHOSPHORUS 2.8 MG/DL (2.3-4.5); TOTAL CARBON DIOXIDE 31.0 MMOL/L (24-32); eCRCL 61 ML/MIN; eGFR > 90 ML/MIN
[2025-02-20 08:00] VITALS: RESP 16; O2SAT 94
[2025-02-20 10:00] VITALS: BP 184/68; PULSE 77; RESP 14; TEMP 97.7; O2SAT 92
--- NOTE | 2025-02-20 11:01 | RADIOLOGY REPORT ---
Indication: Possible SBO Technique: CT axial images of the abdomen and pelvis are obtained without contrast. Coronal and sagittal reformats were obtained. Radiation Dose Information: CTDI volume is 13.1 mGy. Dose-length product is 615 mGy*cm Comparison: CT CT ABDOMEN PELVIS W/ ORAL CONTRAST on DOS: 02/16/25, FINDINGS: There is limited interpretation of the abdomen and pelvis without administration of intravenous contrast. Small bilateral pleural effusions. Bibasilar atelectasis/consolidation. Adrenal glands, spleen, pancreas unremarkable in shape. Liver unremarkable in shape. Cholelithiasis. Kidneys demonstrate no hydronephrosis / nephrolithiasis. Nasogastric tube projecting towards the stomach. Small bowel loops are moderately distended. The enteric contrast extends to the splenic flexure of the colon. Moderate distention of the large bowel loops. Small amount of pneumoperitoneum. Anterior abdominal wall surgical clips. Small amount of ascites fluid. Abdominal aortic atherosclerotic disease. Normal appendix. Free pelvic fluid. Bladder contains nolan catheter. No inguinal lymphadenopathy. [id number] bilateral sacroiliac degenerative joint disease. Severe lumbar degenerative disc disease. 6 mm anterolisthesis L4 upon L5. IMPRESSION: Limited evaluation without contrast. Enteric contrast reaches the splenic flexure of the colon. No evidence for high-grade small bowel obstruction. Overall the small bowel loops are much less distended than on the previous CT. Moderate distention of the large bowel loops could represent ileus. Small amount of pneumoperitoneum/free air which is likely secondary to recent surgery. Correlate clinically. Small amount of ascites fluid. Small bilateral pleural effusions, [id number]-[id number]-kbyf-left. Bibasilar atelectasis/ consolidation. Atherosclerotic disease. Other findings as described
--- NOTE | 2025-02-20 14:26 | PROGRESS NOTE ---
Progress Note ID Providers to CC ~ Progress Note Progress Note: minpain-no bm/vss/abd-soft/laabs noted/ct reviewed a/p 1. s/p carmela-slow progress/ cont LAINE Rosales MD Feb 20, 2025 14:26
[2025-02-20 18:00] VITALS: BP 180/74; PULSE 79; RESP 16; TEMP 99.3; O2SAT 96
--- NOTE | 2025-02-20 19:52 | PROGRESS NOTE ---
Daily Progress Note Providers to CC ~ Antibiotic Timeout Antibiotic Ordered?: Yes Subjective The patient is experiencing some mild abdominal discomfort- continues to have a fair amount of drainage out of the NG tube in his on TPN repeat CT scan of the abdomen and pelvis demonstrates a persistent ileus however no bowel obstruction is present Objective Vital Signs Date Time Temp Pulse Resp B/P (MAP) Pulse Ox O2 Delivery O2 Flow Rate FiO2 02/20/25 19:00 14 02/20/25 11:19 70 02/20/25 10:00 97.7 184/68 (106) 92 Room Air 02/20/25 08:00 0.0 02/19/25 05:12 95 Result Diagram: 02/19/25 0443 02/20/25 0500 Gen. No acute distress alert and oriented 4 Lungs clear to ascultation bilaterally, no wheezes rales or rhonchi appreciated Heart normal sinus rhythm no murmurs rubs or clicks noted Abdomen soft mild generalized tenderness bowel sounds are hypoactive Lower extremities no clubbing cyanosis, nor edema appreciated bilaterally Coagulation Studies Laboratory Tests Test 02/16/25 15:17 Prothrombin Time 10.6 SECONDS (9.0-12.0) INR International Normalized Ratio 1.0 INR Coagulation Comments Problem\Assessment\Plan Patient is 85-year-old female with history of hypothyroidism does not take any other medication besides levothyroxine and vitamin-C. She came to ER with her concern regarding abdominal pain mainly lower abdominal pain which she noticed last night . Hospitalist services contacted for admission for small-bowel obstruction. # small-bowel obstruction. ER provider spoke with Dr. Antoine who is willing to evaluate the case. Ordered CT with oral contrast today. Patient is started on IV fluids IV antibiotics and pain medication for pain control. 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 The splenic artery also displays elevated velocities with turbulence, indicating a possible stenosis. Less than 70% stenosis visualized in the superior mesenteric artery, unable to visualize the inferior mesenteric artery due to bowel gas. CT ABDOMEN PELVISSmall-bowel obstruction as above.Small amount of free fluid. s/p Hysterectomy. she had CT abdomen and pelvis scan done with oral contrast. computer training specialist Dr. Lagos contacted me and discuss the results of the CT abdomen and pelvis with oral contrast. Dr. Antoine following the patient and contacted by nursing staff. Patient had exploratory laparotomy done for small-bowel obstruction . on VINYL DIPPER pump for pain control currently. 02/[address] scan demonstrates persistent ileus however no bowel obstruction # hypothyroidism on levothyroxine # hypokalemia - replacement of potassium as per protocol # nutrition- continue TPN # Code status discussed with the patient at the time of admission, patient wishes full code Date of Service: Feb 20, 2025 Billing Provider: RICHAR STARKS DO Common Visit Codes: [id number] INP/OBS CARE(HIGH) RICHAR STARKS DO Feb 20, 2025 19:52
[2025-02-20 20:00] VITALS: RESP 16; O2SAT 96
[2025-02-20] MEDS: magnesium hydroxide 30ml (MOM) UD suspension PO SCH (20:06)
[2025-02-20] MEDS: bisacodyl 10mg suppository rectal RC PRN (21:29)
[2025-02-20 22:00] VITALS: BP 188/78; PULSE 78; RESP 14; TEMP 98.5; O2SAT 97
[2025-02-20] MEDS: hydrALAZINE 20mg/ml inj. IV ONE (22:54)
[2025-02-21] VITALS (10 sets, daily range): BP systolic 145–180; BP diastolic 60–89; PULSE 66–89; RESP 15–18; TEMP 97.9–98.5; O2SAT 95–98
[2025-02-21 06:26] LABS: MEAN PLATELET VOLUME 10.5 FL (7.4-10.4); RED CELL DISTRIBUTION WIDTH 13.4 % (11.5-14.5)
[2025-02-21 06:44] LABS: CREATININE 0.48 MG/DL (0.40-0.90); PHOSPHORUS 2.8 MG/DL (2.3-4.5); TOTAL CARBON DIOXIDE 29.0 MMOL/L (24-32); eCRCL 70 ML/MIN; eGFR > 90 ML/MIN
[2025-02-21] MEDS: potassium Cl 20 mEq SR tablet PO PRN ×2 (07:32→17:29)
--- NOTE | 2025-02-21 14:02 | PROGRESS NOTE ---
Progress Note ID Providers to CC ~ Progress Note Progress Note: doing well/advance diet-home in am LAINE VARGHESE MD Feb 21, 2025 14:02
[2025-02-21] MEDS ORDERED: potassium Cl 40MEQ/1/2NS 520ml 520 ML IV PRN (17:05)
[2025-02-21] MEDS ORDERED: magnesium Cl slow-release 64mg tablet PO PRN (17:05)
[2025-02-21] MEDS ORDERED: potassium Cl 20 mEq SR tablet PO PRN (17:05)
[2025-02-21] MEDS ORDERED: magnesium sulf-water 2g/50mL 50 ML IV PRN (17:05)
[2025-02-21] MEDS ORDERED: magnesium sulf-water 4G/100mL 100 ML IV PRN (17:05)
--- NOTE | 2025-02-21 19:25 | PROGRESS NOTE ---
Daily Progress Note Providers to CC ~ Antibiotic Timeout Antibiotic Ordered?: Yes Subjective The patient is has a couple of bowel movements and NG tube was removed. Per surgeon the patient will be able to be discharged in the a.m. the patient had significantly elevated blood pressure and I started the patient on amlodipine for which her blood pressure is improved and increased the patient's lisinopril from 10 to 20 mg Objective Vital Signs Date Time Temp Pulse Resp B/P (MAP) Pulse Ox O2 Delivery O2 Flow Rate FiO2 02/21/25 17:08 78 157/86 (109) 02/21/25 17:00 18 02/21/25 10:15 97.9 98 Room Air 02/21/25 08:00 0.0 02/19/25 05:12 95 Result Diagram: 02/21/25 0500 02/21/25 0500 Gen. No acute distress alert and oriented 4 Lungs clear to ascultation bilaterally, no wheezes rales or rhonchi appreciated Heart normal sinus rhythm no murmurs rubs or clicks noted Abdomen soft mild generalized tenderness bowel sounds are mildly hypoactive Lower extremities no clubbing cyanosis, nor edema appreciated bilaterally Coagulation Studies Laboratory Tests Test 02/16/25 15:17 Prothrombin Time 10.6 SECONDS (9.0-12.0) INR International Normalized Ratio 1.0 INR Coagulation Comments Problem\Assessment\Plan Patient is 85-year-old female with history of hypothyroidism does not take any other medication besides levothyroxine and vitamin-C. She came to ER with her concern regarding abdominal pain mainly lower abdominal pain which she noticed last night . Hospitalist services contacted for admission for small-bowel obstruction. # small-bowel obstruction. ER provider spoke with Dr. Antoine who is willing to evaluate the case. Ordered CT with oral contrast today. Patient is started on IV fluids IV antibiotics and pain medication for pain control. 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 The splenic artery also displays elevated velocities with turbulence, indicating a possible stenosis. Less than 70% stenosis visualized in the superior mesenteric artery, unable to visualize the inferior mesenteric artery due to bowel gas. CT ABDOMEN PELVISSmall-bowel obstruction as above.Small amount of free fluid. s/p Hysterectomy. she had CT abdomen and pelvis scan done with oral contrast. parking enforcement specialist Dr. Lagos contacted me and discuss the results of the CT abdomen and pelvis with oral contrast. Dr. Antoine following the patient and contacted by nursing staff. Patient had exploratory laparotomy done for small-bowel obstruction . on MAINTENANCE LEADER pump for pain control currently. 02/[address] scan demonstrates persistent ileus however no bowel obstruction 02/21 the patient has had a total of four bowel movements diet has been advanced and per surgeon discharge in the a.m. # hypothyroidism on levothyroxine # hypokalemia - replacement of potassium as per protocol # nutrition- continue TPN # Code status discussed with the patient at the time of admission, patient wishes full code Disposition: Anticipate discharge in the a.m. to home with home health. Date of Service: Feb 21, 2025 Billing Provider: RICHAR STARKS DO Common Visit Codes: [id number] INP/OBS CARE(HIGH) RICHAR STARKS DO Feb 21, 2025 19:25
[2025-02-22 04:13] LABS: MEAN PLATELET VOLUME 10.6 FL (7.4-10.4); RED CELL DISTRIBUTION WIDTH 13.5 % (11.5-14.5)
[2025-02-22 04:27] LABS: CREATININE 0.38 MG/DL (0.40-0.90); PHOSPHORUS 2.4 MG/DL (2.3-4.5); TOTAL CARBON DIOXIDE 27.8 MMOL/L (24-32); eCRCL 89 ML/MIN; eGFR > 90 ML/MIN
[2025-02-22 06:39] VITALS: BP 165/59; PULSE 82; RESP 16; TEMP 98; O2SAT 95
[2025-02-22 07:50] VITALS: BP_SYST 165; PULSE 82
[2025-02-22 08:00] VITALS: RESP 16
[2025-02-22] MEDS ORDERED: HYDR-3972 PO (11:05)
[2025-02-22] MEDS ORDERED: LISI20TA28 PO (11:05)
[2025-02-22] MEDS ORDERED: ONDA-243 PO (11:05)
[2025-02-22] MEDS ORDERED: AMLO10TA16 PO (11:05)
--- NOTE | 2025-02-22 18:46 | DISCHARGE SUMMARY ---
Discharge Summary Providers to CC ~ Discharge Summary Admission Diagnosis: small bowel obstruction Hospital Course DATE OF ADMISSION: 02/15/2025 DATE OF DISCHARGE: 02/22/2025 Discharge Diagnosis\\Comment: Small-bowel obstruction Hypothyroidism Hypokalemia Hypertension Hyponatremia Operations\\Procedures: Exploratory laparotomy with adhesion lysis Consultants: Dr. Rupert Munoz surgeon Complications: None Condition on DC: Stable New Medications: ONDANSETRON ODT 4mg tablet (Ondansetron Odt) 4 Mg Tab.rapdis 1 TAB PO Q6H PRN for nausea/vomiting, #16 TAB 0 Refills Amlodipine Besylate (Amlodipine Besylate) 10 Mg Tablet 1 TAB PO DAILY for 30 Days, #30 TAB 0 Refills Hydrocodone Bit/Acetaminophen (Hydrocodon-Acetaminophn 10-325 tablet) 10mg- 325mg Tablet 1 TAB PO Q6H PRN for SEVERE PAIN 7-10, #18 TAB Lisinopril (Lisinopril) 20 Mg Tablet 20 MG PO DAILY, #30 TAB Continued Medications: Levothyroxine Sodium (Levothyroxine Sodium) 75 Mcg Tablet 1 TAB PO DAILY Discharge Summary: The patient was admitted by Dr. Kisha Yuan with the following HPI:"Patient is 85-year-old female with history of hypothyroidism does not take any other medication besides levothyroxine and vitamin-C. She came to ER with her concern regarding abdominal pain mainly lower abdominal pain which she noticed last night . as per it started around 11:00 a.m. and got more worse around 1- 2 p.m.. Patient mentioned that it feels like that somebody pinched or twisted her intestines it woke her from her sleep. she [place] as if gas is building up in her stomach so she forced herself to threw up . Patient also mentioned that she is having watery diarrhea since last one month in last bowel movement was this a.m. today was also watery. She denied any blood in her stools , denied any fever . As per patient pain is started suddenly and it was not there since last month with diarrhea. She had colonoscopy done around 77 years of age which was unremarkable. She never had similar symptoms in past and this is the 1st episode of severe abdominal pain for her. Patient does not smoke drink or use any recreational drugs. 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 The splenic artery also displays elevated velocities with turbulence, indicating a possible stenosis. Less than 70% stenosis visualized in the superior mesenteric artery, unable to visualize the inferior mesenteric artery due to bowel gas. CT ABDOMEN PELVISSmall-bowel obstruction as above.Small amount of free fluid. s/p Hysterectomy." The patient went for exploratory laparotomy and adhesion lysis on 02/16/2025 and the patient did have slow return of bowel function however by the the patient did have a couple of bowel movements and also on the the patient has a couple of loose bowel movements. The patient has been on IV Rocephin and has been on TPN however the TPN was discontinued on the and the patient is tolerating advancement in his diet. The patient was on a low dose of a continuous Dilaudid pump and the patient was discharged with a prescription for [place] 02/3251 tablet every 6 hours for severe pain a total of 18 tablets as well as ondansetron ODT PRN nausea. The patient is cleared to be discharged by Dr. uMnoz on the morning of the . The patient has a markedly elevated blood pressure and has a history of hypertension the patient is on 20 mg of lisinopril and 10 mg of amlodipine. The patient also had hypokalemia however this resolved with a potassium replacement protocol in her serum potassium was 3.8 on the day discharge she also has a mild hyponatremia serum sodium was 132 on the day discharge. Gen. No acute distress alert and oriented 4 Lungs clear to ascultation bilaterally, no wheezes rales or rhonchi appreciated Heart normal sinus rhythm no murmurs rubs or clicks noted Abdomen soft nontender bowel sounds are normoactive, mid line abdominal dressing is present Lower extremities no clubbing cyanosis, nor edema appreciated bilaterally The patient felt ready to be discharged and was medically cleared to be discharged on 02/22/2025 The patient was seen and evaluated on day of discharge. Time spent on discharge 35 minutes The patient was recommended to follow up with Dr. Munoz in one-week and returned to the ED in interim if she develops a fever redness or drainage from the surgical site *Problems/Diagnosis: (1) Small bowel adhesions Total Time Spent on D/C: > 30 Minutes Date of Service: Feb 22, 2025 Billing Provider: RICHAR STARKS DO Common Visit Codes: 21366-ANM/OBS DISCH DAY >30min RICHAR STARKS DO Feb 22, 2025 18:45
== END 2025-02-22 13:25 | disposition home health service (06) | DRG 336 ==
LOC: ER 09:01 → ED HOLD 12:07 → SUR 3N 16:26
PROVIDERS: ADMIT Internal Medicine; ATTEND Internal Medicine
PROC: 0DN80ZZ Release Small Intestine, Open Approach (ICD-10-PCS; 2025-02-16)
PROC: 02HV33Z Insertion of Infusion Device into Superior Vena Cava, Percutaneous Approach (ICD-10-PCS; principal; 2025-02-19)
PROC: B548ZZA Ultrasonography of Superior Vena Cava, Guidance (ICD-10-PCS; 2025-02-19)
DX: K56.50 Intestinal adhesions [bands], unspecified as to partial versus complete obstruction (principal); E87.1 Hypo-osmolality and hyponatremia; R65.10 Systemic inflammatory response syndrome (SIRS) of non-infectious origin without acute organ dysfunction; E03.9 Hypothyroidism, unspecified; E87.6 Hypokalemia; I10 Essential (primary) hypertension; Z90.710 Acquired absence of both cervix and uterus; Z79.899 Other long term (current) drug therapy
CPT/HCPCS: 36415; 36569; 74176; 76942; 80048; 80053; 81001; 82150; 82948; 83605; 83690; 83735; 84100; 84134; 84478; 85025; 85610; 87040; 87070; 87075; 87081; 87102; 93005; 93306; 93975; 96365; 96375; 97116; 97161; 97530; 99285; A4615; A4618; A5200; A6258; A6402; A6449; A7000; C1751; C1758; G0378; J0131; J0360; J0694; J0696; J1171; J1644; J1885; J2250; J2270; J2405; J2470; J2704; J2765; J3010; J3480; J3490; J7030; J7120; J7121; P9045; Q9963